=== PATIENT | female | born 1960 | race Caucasian/White ===

== ENCOUNTER → 2018-05-07 | Outpatient (CLI) | payer OTHER ==
[2018-05-09 15:08] LABS: HPV 16 Negative (Negative); HPV 18 Negative (Negative); HPV OTHER HR TYPES Negative (Negative)
== END ==
LOC: LAB SHORT 16:22 → LAB 16:22
PROVIDERS: Nurse Practitioner Women's Health
DX: Z12.4 Encounter for screening for malignant neoplasm of cervix (principal); Z91.89 Other specified personal risk factors, not elsewhere classified
CPT/HCPCS: 87624; G0123

== ENCOUNTER 2024-10-10 06:54 | Day surgery (SDC) | payer OTHER ==
[~2024-10-10] VITALS: Ht 160 cm; Wt 101.1 kg
[2024-10-10] MEDS ORDERED: propofoL 50 ML IV ONE (08:20)
[2024-10-10] MEDS ORDERED: Lactated Ringer's 1,000 ML IV ONE ×2 (08:20→08:38)
[2024-10-10 09:36] VITALS: BP 139/73
== END 2024-10-10 09:44 | disposition home or self-care (01) ==
LOC: ORSCSDS 06:54
PROVIDERS: Surgery
PROC: 0DBN8ZX Excision of Sigmoid Colon, Via Natural or Artificial Opening Endoscopic, Diagnostic (ICD-10-PCS; principal; 2024-10-10 08:45)
PROC: 0DBP8ZX Excision of Rectum, Via Natural or Artificial Opening Endoscopic, Diagnostic (ICD-10-PCS; principal; 2024-10-10 08:45)
DX: Z12.11 Encounter for screening for malignant neoplasm of colon (principal); Z86.0100 Personal history of colon polyps, unspecified; K63.5 Polyp of colon; K62.1 Rectal polyp; K64.8 Other hemorrhoids; E66.9 Obesity, unspecified; Z68.39 Body mass index [BMI] 39.0-39.9, adult; Z87.891 Personal history of nicotine dependence
CPT/HCPCS: 88305; J2704; J7120